=== PATIENT | male | born 1945 | race Caucasian/White ===

== ENCOUNTER 2017-04-09 14:17 | Inpatient (IN) | payer MEDICARE, OTHER ==
[~2017-04-09] VITALS: Ht 167.6 cm; Wt 75.9 kg
[~2017-04-09 14:17] MED LIST: ASPI-1009 PO; ATOR40TA PO; CARV-49 PO; CLOP75TA35 PO; GABA-530 PO; HYDR-3972 PO; LANTUS SQ; NITR0.4T51 SL; POTA20TA10 PO; VALS40TA10 PO
[2017-04-09] MEDS ORDERED: vancomycin/NS 1 GM ADD-VANTAGE 250 ML IV ONE (15:30)
[2017-04-09] MEDS ORDERED: piperacillin/tazo 3.375gm/50ml 50 ML IV ONE (15:30)
[2017-04-09] MEDS ORDERED: normal saline 1000ML IV soln IV ONE (15:30)
[2017-04-09] MEDS ORDERED: oxyCODONE/APAP 10/325mg tablet PO ONE ×2 (15:35→18:40)
[2017-04-09 16:10] LABS: BASOPHILS # (AUTO) 0.1 X10'3 (0-0.2); BASOPHILS % (AUTO) 0.6 % (0-1); EOSINOPHILS # (AUTO) 0.3 X10'3 (0-0.9); EOSINOPHILS % (AUTO) 2.8 % (0-6); HEMATOCRIT 37.3 % (42.0-52.0); HEMOGLOBIN 12.7 g/dl (14.0-17.9); LYMPHOCYTES # (AUTO) 1.2 X10'3 (1.1-4.8); LYMPHOCYTES % (AUTO) 12.2 % (21-51); MEAN CORPUSCULAR HEMOGLOBIN 29.5 PG (27.0-31.0); MEAN CORPUSCULAR VOLUME 86.7 FL (78-98); MEAN PLATELET VOLUME 7.3 FL (7.4-10.4); MONOCYTES # (AUTO) 0.9 X10'3 (0-0.9); MONOCYTES % (AUTO) 8.9 % (2-12); NEUTROPHILS # (AUTO) 7.4 X10'3 (1.8-7.7); NEUTROPHILS % (AUTO) 75.5 % (42-75); PLATELET COUNT 381 X10'3 (140-440); RED BLOOD COUNT 4.31 X10'6 (4.70-6.10); RED CELL DISTRIBUTION WIDTH 13.1 % (11.5-14.5); WHITE BLOOD COUNT 9.8 X10'3 (4.5-11.0)
[2017-04-09 16:29] LABS: ALANINE AMINOTRANSFERASE 24 U/L (12-78); ALBUMIN 3.6 G/DL (3.4-5.0); ALBUMIN/GLOBULIN RATIO 0.7 (1.1-1.5); ALKALINE PHOSPHATASE 144 IU/L (46-116); ANION GAP 7 (8-16); ASPARTATE AMINO TRANSFERASE 13 U/L (10-37); BILIRUBIN,TOTAL 0.8 MG/DL (0.1-1.0); BLOOD UREA NITROGEN 28 MG/DL (7-18); BUN/CREATININE RATIO 22.4 (5.4-32.0); CALCIUM 9.9 MG/DL (8.5-10.1); CHLORIDE 97 MMOL/L (99-107); CREATININE 1.25 MG/DL (0.60-1.10); GLUCOSE 324 MG/DL (70-104); MAGNESIUM 2.2 MG/DL (1.5-2.4); POTASSIUM 5.1 MMOL/L (3.5-5.1); SODIUM 133 MMOL/L (135-145); TOTAL CARBON DIOXIDE 29.3 MMOL/L (24-32); TOTAL PROTEIN 8.6 G/DL (6.4-8.2); eGFR 57 ML/MIN
[2017-04-09 17:07] LABS: INR 1.1 INR; PROTHROMBIN TIME 11.1 SECONDS (9.0-12.0)
[2017-04-09] MEDS ORDERED: potassium Cl 20 mEq SR tablet PO PRN ×2 (17:40)
[2017-04-09] MEDS ORDERED: potassium Cl 40MEQ/NS 500ml 500 ML IV PRN ×2 (17:40)
[2017-04-09] MEDS ORDERED: magnesium 2GM in 50ml NS 50 ML IV PRN (17:40)
[2017-04-09] MEDS ORDERED: magnesium 4gm in 100ml NS 100 ML IV PRN (17:40)
[2017-04-09] MEDS ORDERED: magnesium Cl slow-release 64mg tablet PO PRN (17:40)
[2017-04-09] MEDS ORDERED: acetaminophen 325mg tablet PO PRN (17:40)
[2017-04-09] MEDS ORDERED: ondansetron/PF 4mg/2ml inj IV PRN (17:40)
[2017-04-09] MEDS ORDERED: magnesium hydroxide 30ml (MOM) UD suspension PO PRN (17:40)
[2017-04-09] MEDS ORDERED: mag hydrox/Alum hydrox/simeth 30ml oral suspension PO PRN (17:40)
[2017-04-09 19:31] LABS: CLARITY,URINE Clear (Clear); COLOR,URINE Yellow (Yellow); GLUCOSE, URINE >=1000 mg/dl (Neg); KETONES,URINE Trace mg/dl (Neg); LEUKOCYTE ESTERASE ,URINE Negative (Neg); NITRITES, URINE Negative (Neg); OCCULT BLOOD,URINE Negative (Neg); PROTEIN,URINE 100 mg/dl (Neg)
[2017-04-09 19:35] LABS: UA COLLECTION TYPE URINAL
[2017-04-09 19:37] LABS: RBC,URINE 0-2 /HPF (0-2); WBC,URINE NONE SEEN /HPF (0-4)
[2017-04-09 19:38] LABS: BACTERIA,URINE NONE SEEN /HPF (Neg); SQUAMOUS EPITHELIAL CELL,UR FEW /LPF (FEW)
[2017-04-09 19:40] VITALS: BP 124/60
[2017-04-09] MEDS: piperacillin/tazo 3.375gm/50ml 50 ML IV SCH (21:13)
[2017-04-09] MEDS: atorvastatin 20mg tablet PO SCH (21:14)
[2017-04-09] MEDS: gabapentin 100mg capsule PO SCH (21:14)
[2017-04-09] MEDS: carvedilol 6.25mg tablet PO SCH (21:15)
[2017-04-09] MEDS: insulin glargine (Lantus) pen - multi-dose SQ SCH (21:25)
[2017-04-10] VITALS: BP 111/61
[2017-04-10] MEDS: piperacillin/tazo 3.375gm/50ml 50 ML IV SCH ×4 (02:11→19:20)
[2017-04-10] MEDS: HYDROmorphone inj. 0.5 MG/0.5 ML DISP.SYRIN IV PRN ×2 (02:14→22:14)
[2017-04-10] MEDS: vancomycin/NS 1 GM ADD-VANTAGE 250 ML IV SCH ×2 (04:53→16:45)
[2017-04-10 07:19] VITALS: BP 103/47
[2017-04-10] MEDS ORDERED: clopidogrel 75mg tablet PO SCH (08:00)
[2017-04-10] MEDS: K and/or MAG REPLACEMENT MC SCH (08:00)
[2017-04-10] MEDS ORDERED: aspirin 81mg tablet.DR PO SCH (08:00)
[2017-04-10] MEDS: insulin glargine (Lantus) pen - multi-dose SQ SCH ×2 (09:14→21:19)
[2017-04-10] MEDS: potassium Cl 20 mEq SR tablet PO SCH (09:40)
[2017-04-10] MEDS: lactobacillus rhamnosus 10,000 MMU CELLS/CAPSULE PO SCH ×2 (09:40→16:45)
[2017-04-10] MEDS: gabapentin 100mg capsule PO SCH ×4 (09:40→21:14)
[2017-04-10] MEDS: carvedilol 6.25mg tablet PO SCH ×2 (09:41→19:20)
[2017-04-10] MEDS: enoxaparin 40mg/0.4ml syringe SUBCUT SCH (10:56)
[2017-04-10] MEDS ORDERED: dextrose ORAL solution 15 GM/59 ML bottle PO PRN ×2 (11:25)
[2017-04-10] MEDS ORDERED: glucagon, human recombinant 1mg kit SUBCUT PRN (11:25)
[2017-04-10] MEDS ORDERED: dextrose 50%-water 50ml dispensing syringe IV PRN ×2 (11:25)
[2017-04-10 11:45] VITALS: BP 124/58
[2017-04-10] MEDS: insulin Lispro (HumaLOG) vial - multi-dose SQ SCH ×2 (13:38→19:20)
[2017-04-10] MEDS: normal saline 1000ml 1,000 ML IV SCH (14:49)
[2017-04-10 20:00] VITALS: BP 148/68
[2017-04-10] MEDS: atorvastatin 20mg tablet PO SCH (21:14)
[2017-04-11] VITALS: BP 112/60
[2017-04-11] MEDS: piperacillin/tazo 3.375gm/50ml 50 ML IV SCH ×4 (01:29→21:02)
[2017-04-11] MEDS: vancomycin/NS 1 GM ADD-VANTAGE 250 ML IV SCH ×2 (05:03→17:11)
[2017-04-11 05:13] LABS: BASOPHILS % (AUTO) 0.6 % (0-1); EOSINOPHILS # (AUTO) 0.3 X10'3 (0-0.9); EOSINOPHILS % (AUTO) 4.5 % (0-6); HEMATOCRIT 32.2 % (42.0-52.0); HEMOGLOBIN 10.9 g/dl (14.0-17.9); LYMPHOCYTES # (AUTO) 1.4 X10'3 (1.1-4.8); LYMPHOCYTES % (AUTO) 19.6 % (21-51); MEAN CORPUSCULAR HEMOGLOBIN 29.5 PG (27.0-31.0); MEAN CORPUSCULAR HGB CONC 33.8 % (33.0-36.5); MEAN CORPUSCULAR VOLUME 87.3 FL (78-98); MEAN PLATELET VOLUME 7.7 FL (7.4-10.4); MONOCYTES # (AUTO) 0.9 X10'3 (0-0.9); MONOCYTES % (AUTO) 11.6 % (2-12); NEUTROPHILS # (AUTO) 4.7 X10'3 (1.8-7.7); NEUTROPHILS % (AUTO) 63.7 % (42-75); PLATELET COUNT 362 X10'3 (140-440); RED BLOOD COUNT 3.69 X10'6 (4.70-6.10); WHITE BLOOD COUNT 7.4 X10'3 (4.5-11.0)
[2017-04-11 05:41] LABS: ALBUMIN 2.5 G/DL (3.4-5.0); ANION GAP 7 (8-16); BLOOD UREA NITROGEN 20 MG/DL (7-18); BUN/CREATININE RATIO 17.7 (5.4-32.0); CALCIUM 8.8 MG/DL (8.5-10.1); CHLORIDE 106 MMOL/L (99-107); CREATININE 1.13 MG/DL (0.60-1.10); GLUCOSE 136 MG/DL (70-104); POTASSIUM 4.2 MMOL/L (3.5-5.1); SODIUM 141 MMOL/L (135-145); TOTAL CARBON DIOXIDE 28.1 MMOL/L (24-32); eGFR 64 ML/MIN
[2017-04-11 07:20] VITALS: BP 119/67
[2017-04-11] MEDS: K and/or MAG REPLACEMENT MC SCH (08:00)
[2017-04-11] MEDS: insulin glargine (Lantus) pen - multi-dose SQ SCH ×2 (09:03→21:05)
[2017-04-11] MEDS: insulin Lispro (HumaLOG) vial - multi-dose SQ SCH ×3 (09:04→19:25)
[2017-04-11] MEDS: normal saline 1000ml 1,000 ML IV SCH ×3 (09:05→21:13)
[2017-04-11] MEDS: gabapentin 100mg capsule PO SCH ×4 (09:05→20:54)
[2017-04-11] MEDS: potassium Cl 20 mEq SR tablet PO SCH (09:06)
[2017-04-11] MEDS: carvedilol 6.25mg tablet PO SCH ×2 (09:06→20:54)
[2017-04-11] MEDS: enoxaparin 40mg/0.4ml syringe SUBCUT SCH (09:06)
[2017-04-11] MEDS: lactobacillus rhamnosus 10,000 MMU CELLS/CAPSULE PO SCH ×2 (09:06→17:11)
[2017-04-11 11:50] VITALS: BP 116/51
[2017-04-11] MEDS ORDERED: VANCOMYCIN LEVEL IV NR (16:30)
[2017-04-11 19:00] VITALS: BP 127/63
[2017-04-11] MEDS: atorvastatin 20mg tablet PO SCH (20:54)
[2017-04-11] MEDS ORDERED: iohexol 350MG/ML 100ml bottle IV ONE (21:04)
[2017-04-11] MEDS ORDERED: iohexol 350 MG/ML 50ML vial IV ONE (21:04)
[2017-04-12] VITALS: BP 116/55
[2017-04-12] MEDS: piperacillin/tazo 3.375gm/50ml 50 ML IV SCH ×4 (01:59→21:04)
[2017-04-12] MEDS: vancomycin/NS 1 GM ADD-VANTAGE 250 ML IV SCH ×2 (05:11→18:40)
[2017-04-12] MEDS: normal saline 1000ml 1,000 ML IV SCH ×2 (06:00→14:01)
[2017-04-12 07:00] VITALS: BP 147/72
[2017-04-12] MEDS: carvedilol 6.25mg tablet PO SCH ×2 (07:56→21:05)
[2017-04-12] MEDS: lactobacillus rhamnosus 10,000 MMU CELLS/CAPSULE PO SCH ×2 (07:59→18:41)
[2017-04-12] MEDS: potassium Cl 20 mEq SR tablet PO SCH (07:59)
[2017-04-12] MEDS: gabapentin 100mg capsule PO SCH ×4 (08:00→21:00)
[2017-04-12] MEDS: enoxaparin 40mg/0.4ml syringe SUBCUT SCH (08:01)
[2017-04-12] MEDS: insulin glargine (Lantus) pen - multi-dose SQ SCH ×2 (08:08→21:12)
[2017-04-12 08:30] LABS: BASOPHILS # (AUTO) 0.1 X10'3 (0-0.2); BASOPHILS % (AUTO) 0.7 % (0-1); EOSINOPHILS # (AUTO) 0.4 X10'3 (0-0.9); EOSINOPHILS % (AUTO) 4.3 % (0-6); HEMATOCRIT 34.7 % (42.0-52.0); HEMOGLOBIN 11.6 g/dl (14.0-17.9); LYMPHOCYTES # (AUTO) 1.4 X10'3 (1.1-4.8); LYMPHOCYTES % (AUTO) 15.9 % (21-51); MEAN CORPUSCULAR HEMOGLOBIN 29.2 PG (27.0-31.0); MEAN CORPUSCULAR HGB CONC 33.6 % (33.0-36.5); MEAN CORPUSCULAR VOLUME 87.1 FL (78-98); MEAN PLATELET VOLUME 7.5 FL (7.4-10.4); MONOCYTES # (AUTO) 0.8 X10'3 (0-0.9); MONOCYTES % (AUTO) 9.2 % (2-12); NEUTROPHILS # (AUTO) 6.1 X10'3 (1.8-7.7); NEUTROPHILS % (AUTO) 69.9 % (42-75); PLATELET COUNT 395 X10'3 (140-440); RED BLOOD COUNT 3.98 X10'6 (4.70-6.10); WHITE BLOOD COUNT 8.7 X10'3 (4.5-11.0)
[2017-04-12 08:47] LABS: ALANINE AMINOTRANSFERASE 21 U/L (12-78); ALBUMIN 2.6 G/DL (3.4-5.0); ALBUMIN/GLOBULIN RATIO 0.6 (1.1-1.5); ALKALINE PHOSPHATASE 112 IU/L (46-116); ANION GAP 9 (8-16); ASPARTATE AMINO TRANSFERASE 18 U/L (10-37); BILIRUBIN,TOTAL 0.5 MG/DL (0.1-1.0); BLOOD UREA NITROGEN 10 MG/DL (7-18); BUN/CREATININE RATIO 9.9 (5.4-32.0); CALCIUM 9.2 MG/DL (8.5-10.1); CHLORIDE 108 MMOL/L (99-107); CREATININE 1.01 MG/DL (0.60-1.10); GLUCOSE 85 MG/DL (70-104); POTASSIUM 4.1 MMOL/L (3.5-5.1); SODIUM 144 MMOL/L (135-145); TOTAL CARBON DIOXIDE 26.9 MMOL/L (24-32); TOTAL PROTEIN 7.1 G/DL (6.4-8.2); eGFR 73 ML/MIN
[2017-04-12] MEDS: K and/or MAG REPLACEMENT MC SCH (08:50)
[2017-04-12 11:00] VITALS: BP 136/65
[2017-04-12 20:00] VITALS: BP 152/67
[2017-04-12] MEDS: atorvastatin 20mg tablet PO SCH (21:05)
[2017-04-12] MEDS ORDERED: temazepam 15mg capsule PO PRN (22:45)
[2017-04-13] VITALS: BP 128/62
[2017-04-13] MEDS: piperacillin/tazo 3.375gm/50ml 50 ML IV SCH ×4 (01:10→20:59)
[2017-04-13] MEDS: normal saline 1000ml 1,000 ML IV SCH ×3 (01:12→22:00)
[2017-04-13] MEDS: vancomycin/NS 1 GM ADD-VANTAGE 250 ML IV SCH ×2 (05:11→17:44)
[2017-04-13 05:44] LABS: BASOPHILS # (AUTO) 0.1 X10'3 (0-0.2); BASOPHILS % (AUTO) 1.1 % (0-1); EOSINOPHILS # (AUTO) 0.4 X10'3 (0-0.9); EOSINOPHILS % (AUTO) 6.4 % (0-6); HEMATOCRIT 29.7 % (42.0-52.0); HEMOGLOBIN 10.1 g/dl (14.0-17.9); LYMPHOCYTES # (AUTO) 1.4 X10'3 (1.1-4.8); MEAN CORPUSCULAR HEMOGLOBIN 29.2 PG (27.0-31.0); MEAN CORPUSCULAR HGB CONC 33.9 % (33.0-36.5); MEAN CORPUSCULAR VOLUME 86.2 FL (78-98); MEAN PLATELET VOLUME 7.4 FL (7.4-10.4); MONOCYTES # (AUTO) 0.7 X10'3 (0-0.9); MONOCYTES % (AUTO) 10.5 % (2-12); NEUTROPHILS # (AUTO) 3.9 X10'3 (1.8-7.7); PLATELET COUNT 370 X10'3 (140-440); RED BLOOD COUNT 3.44 X10'6 (4.70-6.10); WHITE BLOOD COUNT 6.4 X10'3 (4.5-11.0)
[2017-04-13 06:23] LABS: ALANINE AMINOTRANSFERASE 20 U/L (12-78); ALBUMIN 2.3 G/DL (3.4-5.0); ALBUMIN/GLOBULIN RATIO 0.6 (1.1-1.5); ALKALINE PHOSPHATASE 97 IU/L (46-116); ANION GAP 10 (8-16); ASPARTATE AMINO TRANSFERASE 20 U/L (10-37); BILIRUBIN,TOTAL 0.5 MG/DL (0.1-1.0); BLOOD UREA NITROGEN 8 MG/DL (7-18); BUN/CREATININE RATIO 8.1 (5.4-32.0); CALCIUM 8.5 MG/DL (8.5-10.1); CHLORIDE 111 MMOL/L (99-107); CREATININE 0.99 MG/DL (0.60-1.10); GLUCOSE 70 MG/DL (70-104); MAGNESIUM 1.9 MG/DL (1.5-2.4); POTASSIUM 3.6 MMOL/L (3.5-5.1); SODIUM 145 MMOL/L (135-145); TOTAL CARBON DIOXIDE 24.3 MMOL/L (24-32); TOTAL PROTEIN 6.3 G/DL (6.4-8.2); eGFR 75 ML/MIN
[2017-04-13 07:00] VITALS: BP 124/92
[2017-04-13] MEDS: K and/or MAG REPLACEMENT MC SCH (07:21)
[2017-04-13] MEDS: insulin glargine (Lantus) pen - multi-dose SQ SCH ×2 (07:30→20:59)
[2017-04-13] MEDS: carvedilol 6.25mg tablet PO SCH ×2 (07:33→20:59)
[2017-04-13] MEDS: lactobacillus rhamnosus 10,000 MMU CELLS/CAPSULE PO SCH ×2 (07:33→17:44)
[2017-04-13] MEDS: potassium Cl 20 mEq SR tablet PO SCH (07:34)
[2017-04-13] MEDS: enoxaparin 40mg/0.4ml syringe SUBCUT SCH (07:34)
[2017-04-13] MEDS: gabapentin 100mg capsule PO SCH ×4 (07:34→20:59)
[2017-04-13 10:40] LABS: C DIFF ANTIGEN NEGATIVE (NEGATIVE); C DIFF SPECIMEN=DIARRHEA? ACCEPTABLE; C DIFFICILE TOXINS A&B NEGATIVE (Neg)
[2017-04-13 11:00] VITALS: BP 138/74
[2017-04-13] MEDS: loperamide 2mg capsule PO PRN ×2 (11:59→18:01)
[2017-04-13] MEDS: insulin Lispro (HumaLOG) vial - multi-dose SQ SCH (13:19)
[2017-04-13 19:00] VITALS: BP 160/73
[2017-04-13] MEDS: atorvastatin 20mg tablet PO SCH (20:58)
[2017-04-13 23:00] VITALS: BP 141/66
[2017-04-14] VITALS (36 sets, daily range): BP systolic 130–159; BP diastolic 54–83
[2017-04-14] MEDS: piperacillin/tazo 3.375gm/50ml 50 ML IV SCH ×4 (01:17→19:54)
[2017-04-14 03:13] LABS: BASOPHILS % (AUTO) 0.8 % (0-1); EOSINOPHILS # (AUTO) 0.4 X10'3 (0-0.9); EOSINOPHILS % (AUTO) 6.1 % (0-6); HEMATOCRIT 29.8 % (42.0-52.0); HEMOGLOBIN 9.9 g/dl (14.0-17.9); LYMPHOCYTES # (AUTO) 1.4 X10'3 (1.1-4.8); LYMPHOCYTES % (AUTO) 21.9 % (21-51); MEAN CORPUSCULAR HGB CONC 33.3 % (33.0-36.5); MEAN CORPUSCULAR VOLUME 87.2 FL (78-98); MEAN PLATELET VOLUME 7.2 FL (7.4-10.4); MONOCYTES # (AUTO) 0.8 X10'3 (0-0.9); MONOCYTES % (AUTO) 12.3 % (2-12); NEUTROPHILS # (AUTO) 3.6 X10'3 (1.8-7.7); NEUTROPHILS % (AUTO) 58.9 % (42-75); PLATELET COUNT 375 X10'3 (140-440); RED BLOOD COUNT 3.42 X10'6 (4.70-6.10); RED CELL DISTRIBUTION WIDTH 13.2 % (11.5-14.5); WHITE BLOOD COUNT 6.2 X10'3 (4.5-11.0)
[2017-04-14 03:41] LABS: ALANINE AMINOTRANSFERASE 21 U/L (12-78); ALBUMIN 2.3 G/DL (3.4-5.0); ALBUMIN/GLOBULIN RATIO 0.6 (1.1-1.5); ALKALINE PHOSPHATASE 91 IU/L (46-116); ANION GAP 8 (8-16); ASPARTATE AMINO TRANSFERASE 26 U/L (10-37); BILIRUBIN,TOTAL 0.5 MG/DL (0.1-1.0); CALCIUM 8.2 MG/DL (8.5-10.1); CHLORIDE 111 MMOL/L (99-107); CREATININE 1.97 MG/DL (0.60-1.10); GLUCOSE 110 MG/DL (70-104); MAGNESIUM 1.8 MG/DL (1.5-2.4); POTASSIUM 3.8 MMOL/L (3.5-5.1); SODIUM 142 MMOL/L (135-145); TOTAL CARBON DIOXIDE 22.9 MMOL/L (24-32); eGFR 34 ML/MIN
[2017-04-14] MEDS: normal saline 1000ml 1,000 ML IV SCH ×2 (03:52→19:53)
[2017-04-14 03:56] LABS: BLOOD UREA NITROGEN 12 MG/DL (7-18); BUN/CREATININE RATIO 6.1 (5.4-32.0)
[2017-04-14] MEDS: enoxaparin 40mg/0.4ml syringe SUBCUT SCH (04:27)
[2017-04-14] MEDS: vancomycin/NS 1 GM ADD-VANTAGE 250 ML IV SCH ×2 (05:03→17:49)
[2017-04-14] MEDS: lactobacillus rhamnosus 10,000 MMU CELLS/CAPSULE PO SCH ×2 (07:30→17:49)
[2017-04-14] MEDS: insulin glargine (Lantus) pen - multi-dose SQ SCH ×2 (07:30→21:30)
[2017-04-14] MEDS: K and/or MAG REPLACEMENT MC SCH (08:00)
[2017-04-14] MEDS: gabapentin 100mg capsule PO SCH ×4 (08:00→21:26)
[2017-04-14] MEDS ORDERED: fentaNYL/PF 50MCG/1 ML 2ML syringe IV PRN (08:50)
[2017-04-14] MEDS ORDERED: heparin 1,000 UNITS/NS 500ml 500 ML ICATH ONE (08:50)
[2017-04-14] MEDS ORDERED: LIDOcaine 1%/PF (10mg/ml) 5ml vial SQ ONE (08:50)
[2017-04-14] MEDS ORDERED: midazolam 2 mg/2 ml injection IV PRN (08:50)
[2017-04-14] MEDS ORDERED: iohexol 300mg/ml 100ml inj. ONE ×2 (09:02→10:43)
[2017-04-14] MEDS ORDERED: LIDOcaine 1%/PF (10mg/ml) 5ml vial ONE (09:02)
[2017-04-14] MEDS ORDERED: fentaNYL/PF 50MCG/1 ML 2ML syringe ONE ×2 (09:05→10:14)
[2017-04-14] MEDS ORDERED: heparin 1,000 UNITS/NS 500ml 500 ML ONE (09:05)
[2017-04-14] MEDS ORDERED: midazolam 2 mg/2 ml injection ONE ×2 (09:05→10:14)
[2017-04-14] MEDS ORDERED: heparin 1,000unit/ml 10ml vial 10 ML ONE (10:40)
[2017-04-14] MEDS: potassium Cl 20 mEq SR tablet PO SCH (16:06)
[2017-04-14] MEDS: carvedilol 6.25mg tablet PO SCH ×2 (16:06→19:55)
[2017-04-14] MEDS: atorvastatin 20mg tablet PO SCH (21:26)
[2017-04-15] VITALS: BP 121/58
[2017-04-15] MEDS ORDERED: VANCOMYCIN LEVEL IV ONE (04:30)
[2017-04-15] MEDS: vancomycin/NS 1 GM ADD-VANTAGE 250 ML IV SCH (04:52)
[2017-04-15 06:14] LABS: BASOPHILS # (AUTO) 0.1 X10'3 (0-0.2); BASOPHILS % (AUTO) 0.7 % (0-1); EOSINOPHILS # (AUTO) 0.2 X10'3 (0-0.9); EOSINOPHILS % (AUTO) 2.8 % (0-6); HEMATOCRIT 31.2 % (42.0-52.0); HEMOGLOBIN 10.5 g/dl (14.0-17.9); LYMPHOCYTES # (AUTO) 1.3 X10'3 (1.1-4.8); LYMPHOCYTES % (AUTO) 17.4 % (21-51); MEAN CORPUSCULAR HEMOGLOBIN 29.3 PG (27.0-31.0); MEAN CORPUSCULAR HGB CONC 33.6 % (33.0-36.5); MEAN CORPUSCULAR VOLUME 87.2 FL (78-98); MEAN PLATELET VOLUME 7.7 FL (7.4-10.4); MONOCYTES # (AUTO) 0.7 X10'3 (0-0.9); MONOCYTES % (AUTO) 8.6 % (2-12); NEUTROPHILS # (AUTO) 5.4 X10'3 (1.8-7.7); NEUTROPHILS % (AUTO) 70.5 % (42-75); PLATELET COUNT 369 X10'3 (140-440); RED BLOOD COUNT 3.58 X10'6 (4.70-6.10); RED CELL DISTRIBUTION WIDTH 13.2 % (11.5-14.5); WHITE BLOOD COUNT 7.7 X10'3 (4.5-11.0)
[2017-04-15 07:23] LABS: ALANINE AMINOTRANSFERASE 17 U/L (12-78); ALBUMIN 2.5 G/DL (3.4-5.0); ALBUMIN/GLOBULIN RATIO 0.6 (1.1-1.5); ALKALINE PHOSPHATASE 89 IU/L (46-116); ANION GAP 16 (8-16); ASPARTATE AMINO TRANSFERASE 17 U/L (10-37); BILIRUBIN,TOTAL 0.6 MG/DL (0.1-1.0); BLOOD UREA NITROGEN 14 MG/DL (7-18); BUN/CREATININE RATIO 5.4 (5.4-32.0); CALCIUM 8.6 MG/DL (8.5-10.1); CHLORIDE 110 MMOL/L (99-107); CREATININE 2.58 MG/DL (0.60-1.10); GLUCOSE 151 MG/DL (70-104); POTASSIUM 4.4 MMOL/L (3.5-5.1); SODIUM 144 MMOL/L (135-145); TOTAL CARBON DIOXIDE 18.5 MMOL/L (24-32); TOTAL PROTEIN 6.7 G/DL (6.4-8.2); eGFR 25 ML/MIN
[2017-04-15] MEDS: lactobacillus rhamnosus 10,000 MMU CELLS/CAPSULE PO SCH (07:30)
[2017-04-15 07:31] LABS: VANCOMYCIN,TROUGH 37.8 UG/ML (6.0-14.0)
[2017-04-15 08:00] VITALS: BP 147/73
[2017-04-15] MEDS: K and/or MAG REPLACEMENT MC SCH (08:00)
[2017-04-15] MEDS: insulin glargine (Lantus) pen - multi-dose SQ SCH ×2 (08:19→21:17)
[2017-04-15] MEDS: gabapentin 100mg capsule PO SCH ×4 (08:25→21:09)
[2017-04-15] MEDS: potassium Cl 20 mEq SR tablet PO SCH (08:26)
[2017-04-15] MEDS: carvedilol 6.25mg tablet PO SCH ×2 (08:26→19:33)
[2017-04-15] MEDS: enoxaparin 40mg/0.4ml syringe SUBCUT SCH (08:28)
[2017-04-15] MEDS: normal saline 1000ml 1,000 ML IV SCH ×2 (08:28→17:50)
[2017-04-15] MEDS: cefTRIAXone 1g/NS 100ml IVPB 100 ML IV SCH (09:00)
[2017-04-15 12:00] VITALS: BP 134/73
[2017-04-15 12:45] LABS: CLARITY,URINE Clear (Clear); COLOR,URINE Yellow (Yellow); GLUCOSE, URINE Negative (Neg); KETONES,URINE 15 mg/dl (Neg); LEUKOCYTE ESTERASE ,URINE Negative (Neg); NITRITES, URINE Negative (Neg); OCCULT BLOOD,URINE Small (Neg); PH,URINE 5.5 (4.8-8.0); PROTEIN,URINE 100 mg/dl (Neg)
[2017-04-15 12:47] LABS: UA COLLECTION TYPE NON-SPECIFIED
[2017-04-15 12:58] LABS: MUCUS STRANDS NONE SEEN /LPF (Neg); SQUAMOUS EPITHELIAL CELL,UR MODERATE /LPF (FEW)
[2017-04-15 13:04] LABS: RBC,URINE 0-2 /HPF (0-2); WBC,URINE 0-4 /HPF (0-4)
[2017-04-15 13:05] LABS: AMORPHOUS URATES 1+; BACTERIA,URINE 1+ /HPF (Neg); SPERM FEW /HPF (NEGATIVE); TRANSITIONAL EPI CELLS,URINE FEW /HPF
[2017-04-15 20:00] VITALS: BP 156/75
[2017-04-15] MEDS: atorvastatin 20mg tablet PO SCH (21:09)
[2017-04-16] VITALS: BP 144/67
[2017-04-16] MEDS ORDERED: VANCOMYCIN LEVEL IV ONE (04:30)
[2017-04-16 06:05] LABS: ALANINE AMINOTRANSFERASE 23 U/L (12-78); ALBUMIN 2.2 G/DL (3.4-5.0); ALBUMIN/GLOBULIN RATIO 0.6 (1.1-1.5); ALKALINE PHOSPHATASE 79 IU/L (46-116); ANION GAP 8 (8-16); ASPARTATE AMINO TRANSFERASE 19 U/L (10-37); BILIRUBIN,TOTAL 0.3 MG/DL (0.1-1.0); BLOOD UREA NITROGEN 15 MG/DL (7-18); CHLORIDE 114 MMOL/L (99-107); GLUCOSE 83 MG/DL (70-104); MAGNESIUM 1.9 MG/DL (1.5-2.4); SODIUM 144 MMOL/L (135-145); TOTAL CARBON DIOXIDE 22.5 MMOL/L (24-32); TOTAL PROTEIN 5.9 G/DL (6.4-8.2); VANCOMYCIN,RANDOM 32.7 UG/ML
[2017-04-16 06:07] LABS: BASOPHILS # (AUTO) 0.1 X10'3 (0-0.2); EOSINOPHILS # (AUTO) 0.3 X10'3 (0-0.9); HEMATOCRIT 29.2 % (42.0-52.0); HEMOGLOBIN 9.6 g/dl (14.0-17.9); LYMPHOCYTES # (AUTO) 1.3 X10'3 (1.1-4.8); LYMPHOCYTES % (AUTO) 20.3 % (21-51); MEAN CORPUSCULAR HEMOGLOBIN 28.9 PG (27.0-31.0); MEAN CORPUSCULAR VOLUME 87.5 FL (78-98); MEAN PLATELET VOLUME 7.7 FL (7.4-10.4); MONOCYTES # (AUTO) 0.7 X10'3 (0-0.9); MONOCYTES % (AUTO) 10.7 % (2-12); NEUTROPHILS # (AUTO) 3.9 X10'3 (1.8-7.7); PLATELET COUNT 368 X10'3 (140-440); RED BLOOD COUNT 3.33 X10'6 (4.70-6.10); RED CELL DISTRIBUTION WIDTH 13.2 % (11.5-14.5); WHITE BLOOD COUNT 6.2 X10'3 (4.5-11.0)
[2017-04-16] MEDS ORDERED: LACTOBACILLUS RHAMNOSUS GG 15 billion unit sprinkle caps PO SCH (07:30)
[2017-04-16] MEDS: insulin glargine (Lantus) pen - multi-dose SQ SCH (07:30)
[2017-04-16] MEDS: gabapentin 100mg capsule PO SCH ×2 (07:59→13:44)
[2017-04-16] MEDS: carvedilol 6.25mg tablet PO SCH (07:59)
[2017-04-16 08:00] VITALS: BP 134/73
[2017-04-16] MEDS: K and/or MAG REPLACEMENT MC SCH (08:00)
[2017-04-16] MEDS: enoxaparin 40mg/0.4ml syringe SUBCUT SCH (08:00)
[2017-04-16] MEDS ORDERED: vancomycin/NS 1 GM ADD-VANTAGE 250 ML IV SCH (08:00)
[2017-04-16] MEDS: cefTRIAXone 1g/NS 100ml IVPB 100 ML IV SCH (08:02)
[2017-04-16] MEDS: potassium Cl 20 mEq SR tablet PO SCH (08:12)
[2017-04-16] MEDS: normal saline 1000ml 1,000 ML IV SCH (10:00)
[2017-04-16 11:42] LABS: BUN/CREATININE RATIO 5.9 (5.4-32.0); CREATININE 2.53 MG/DL (0.60-1.10); eGFR 25 ML/MIN
[2017-04-16 12:00] VITALS: BP 121/58
[2017-04-16 14:53] LABS: TOTAL VOLUME 24HRS,URINE 825 ML
[2017-04-16] MEDS ORDERED: CIPR-260 PO (15:05)
[2017-04-16 16:42] LABS: CREATININE 2.53 MG/DL (0.60-1.10)
[2017-04-17] MEDS ORDERED: VANCOMYCIN LEVEL IV ONE (04:30)
== END 2017-04-16 17:05 | disposition home or self-care (01) | DRG 253 ==
LOC: ER 14:18 → ED HOLD 17:39 → EDBEDREQ 19:09 → SUR 3N 19:42
PROVIDERS: ADMIT Internal Medicine; ATTEND Family Medicine
PROC: B4201ZZ Computerized Tomography (CT Scan) of Abdominal Aorta using Low Osmolar Contrast (ICD-10-PCS; 2017-04-11)
PROC: B42H1ZZ Computerized Tomography (CT Scan) of Bilateral Lower Extremity Arteries using Low Osmolar Contrast (ICD-10-PCS; 2017-04-11)
PROC: 047K3ZZ Dilation of Right Femoral Artery, Percutaneous Approach (ICD-10-PCS; principal; 2017-04-14)
PROC: B41F1ZZ Fluoroscopy of Right Lower Extremity Arteries using Low Osmolar Contrast (ICD-10-PCS; 2017-04-14)
DX: E11.52 Type 2 diabetes mellitus with diabetic peripheral angiopathy with gangrene (principal); N17.9 Acute kidney failure, unspecified; E11.22 Type 2 diabetes mellitus with diabetic chronic kidney disease; E11.69 Type 2 diabetes mellitus with other specified complication; L03.115 Cellulitis of right lower limb; M86.8X7 Other osteomyelitis, ankle and foot; L97.519 Non-pressure chronic ulcer of other part of right foot with unspecified severity; I25.10 Atherosclerotic heart disease of native coronary artery without angina pectoris; N18.9 Chronic kidney disease, unspecified; E78.00 Pure hypercholesterolemia, unspecified; I12.9 Hypertensive chronic kidney disease with stage 1 through stage 4 chronic kidney disease, or unspecified chronic kidney disease; D64.9 Anemia, unspecified; E78.5 Hyperlipidemia, unspecified; I77.1 Stricture of artery; I25.2 Old myocardial infarction; Z95.1 Presence of aortocoronary bypass graft; Z95.0 Presence of cardiac pacemaker; Z88.5 Allergy status to narcotic agent; Z88.8 Allergy status to other drugs, medicaments and biological substances; Z79.82 Long term (current) use of aspirin; Z79.4 Long term (current) use of insulin; Z79.899 Other long term (current) drug therapy; Z83.3 Family history of diabetes mellitus; Z82.41 Family history of sudden cardiac death; Z82.49 Family history of ischemic heart disease and other diseases of the circulatory system; Z22.322 Carrier or suspected carrier of Methicillin resistant Staphylococcus aureus
CPT/HCPCS: 36160; 36415; 37224; 71010; 73620; 73706; 75625; 75710; 80048; 80053; 80202; 81001; 82043; 82575; 82948; 83605; 83735; 84145; 84156; 84166; 84300; 85025; 85610; 87040; 87070; 87324; 87449; 93005; 93922; 93926; 93975; 96365; 99152; 99153; 99285; A4620; A6219; A6446; A6449; C1725; C1769; C1894; J0696; J1170; J1644; J1650; J1815; J2001; J2250; J2405; J2543; J3010; J3370; J7030; Q9967